=== PATIENT | female | born 1965 | race American Indian/Alaskan Native ===

== ENCOUNTER 2017-02-02 13:47 | Inpatient (IN) | payer OTHER ==
[2017-02-02 13:57] VITALS: BMI 25.9
[2017-02-02] MEDS ORDERED: Morphine 4 mg/ml ISec IVP STA (14:17)
[2017-02-02] MEDS ORDERED: Sodium Chloride 0.9% 1,000 ML IV STA (14:17)
--- NOTE | 2017-02-02 14:29 | ED PDOC ---
Arrival/HPI - General Historian: Patient <Darian Valencia A - Last Filed: 02/02/17 17:11> <Fernando Carson - Last Filed: 02/02/17 17:40> - General Chief Complaint: Weakness/Neurological Deficit Time Seen by Provider: 02/02/17 14:16 - History of Present Illness Narrative History of Present Illness (Text): 02/02/17 14:21 51yo female with PMHx of Multiple sclerosis present with complaint of extremities weakness and pain x 3weeks. States symptoms are typical of her symptoms with MS exacerbation. she notes she was getting IVIG every two weeks up until December. States her PMD stopped taking her insurance. She have had MS for 20years. Denies headache, abdominal pain, chest pain, visual change, aphasia , any other complaint. (Darian Valencia A) Past Medical History - Provider Review Nursing Documentation Reviewed: Yes - Infectious Disease Hx of Infectious Diseases: None - Tetanus Immunization Tetanus Immunization: Unknown - Cardiac Hx Hypertension: Yes - Pulmonary Hx Respiratory Disorders: No - Neurological Hx Neurological Disorder: Yes Other/Comment: MULTIPLE SCLEROSIS - HEENT Hx HEENT Disorder: No - Renal Hx Renal Disorder: No - Endocrine/Metabolic Hx Hypothyroidism: Yes - Hematological/Oncological Hx Blood Disorders: No - Integumentary Hx Dermatological Disorder: No - Musculoskeletal/Rheumatological Hx Falls: Yes Hx Unsteady Gait: Yes - Gastrointestinal Hx Gastrointestinal Disorders: No - Genitourinary/Gynecological Hx Genitourinary Disorders: No - Psychiatric Hx Psychophysiologic Disorder: No Hx Substance Use: No - Surgical History Hx Appendectomy: Yes Hx Tubal Ligation: Yes Other/Comment: Portacath to right chest wall. removal. Left portacath placed. x2 ovarian cyst <Darian Valencia A - Last Filed: 02/02/17 17:11> Family/Social History - Physician Review Nursing Documentation Reviewed: Yes Family/Social History: Unknown Family HX Smoking Status: Never Smoked Hx Alcohol Use: No Hx Substance Use: No <Darian Valencia A - Last Filed: 02/02/17 17:11> Allergies/Home Meds <Darian Valencia A - Last Filed: 02/02/17 17:11> <Fernando Carson - Last Filed: 02/02/17 17:40> Allergies/Adverse Reactions: Allergies Sulfa (Sulfonamide Antibiotics) Allergy (Intermediate, Verified 02/02/17 13:57) RASH Patient reported hives 5 years ago. Home Medications: Home Meds Medication Instructions Recorded Confirmed Losartan [Cozaar] 100 mg PO DAILY 11/12/15 02/02/17 Metoprolol Succinate [Toprol XL] 50 mg PO BID 11/12/15 02/02/17 Hydrochlorothiazide [HCTZ] 12.5 mg PO DAILY 05/18/16 02/02/17 Review of Systems - Physician Review All systems were reviewed & negative as marked: Yes - Review of Systems Constitutional: Normal Eyes: Normal ENT: Normal Respiratory: Normal Cardiovascular: Normal Gastrointestinal: Normal Genitourinary Female: Normal Musculoskeletal: Normal Skin: Normal Neurological: Focal Weakness Endocrine: Normal Hemo/Lymphatic: Normal Psychiatric: Normal <Diru,Happiness A - Last Filed: 02/02/17 17:11> Physical Exam Vital Signs Reviewed: Yes Temperature: Afebrile Blood Pressure: Normal Pulse: Regular Respiratory Rate: Normal Appearance: Positive for: Well-Appearing, Non-Toxic, Comfortable Pain Distress: None Mental Status: Positive for: Alert and Oriented X 3 - Systems Exam Head: Present: Atraumatic, Normocephalic Pupils: Present: PERRL Extroacular Muscles: Present: EOMI Conjunctiva: Present: Normal Mouth: Present: Moist Mucous Membranes Neck: Present: Normal Range of Motion Respiratory/Chest: Present: Clear to Auscultation, Good Air Exchange. No: Respiratory Distress, Accessory Muscle Use Cardiovascular: Present: Regular Rate and Rhythm, Normal S1, S2. No: Murmurs Abdomen: Present: Normal Bowel Sounds. No: Tenderness, Distention, Peritoneal Signs Back: Present: Normal Inspection Upper Extremity: Present: Normal Inspection. No: Cyanosis, Edema Lower Extremity: Present: Normal Inspection. No: Edema Neurological: Present: GCS=15, CN II-XII Intact, Speech Normal, Normal Sensory Function, Normal Cerebellar Funct, Memory Normal. No: Motor Func Grossly Intact (Upper extremity 3/5 and lower extremity 1/5), Norm Deep Tendon Reflexes Skin: Present: Warm, Dry, Normal Color. No: Rashes Psychiatric: Present: Alert, Oriented x 3, Normal Insight, Normal Concentration <Diru,Happiness A - Last Filed: 02/02/17 17:11> Vital Signs Temp Pulse Resp BP Pulse Ox 02/02/17 16:22 64 18 118/69 99 02/02/17 15:14 65 19 121/76 99 02/02/17 13:59 98.0 F 87 18 142/85 98 Medical Decision Making <Darian Valencia - Last Filed: 02/02/17 17:11> <Fernando Carson - Last Filed: 02/02/17 17:40> ED Course and Treatment: 02/02/17 16:03 Pt with history of MS in ED for MS exacerbation. Extremity weakness was noted in ED. Pt was hydrated, Solu medrol given and Morphine for pain. On re evaluation she states she feels mildly better, but still weak. Lab was unremarkable. ESR still pending. PT will be admitted for MS exacerbation. Result and plan was DW the pt and she agreed. EKG NSR with Nonspecific T wave abnormality @ 65bpm with no ST changes CXR NAD Case was DW Dr. Brito and she accepted pt into her service. She requested Dr. Sanford as consult. (Darian Valencia) - Lab Interpretations Lab Results: 02/02/17 14:26 02/02/17 14:26 Lab Results 02/02/17 14:37: Urine Color Yellow, Urine Appearance Sl cloudy, Urine pH 6.0, Ur Specific [place] 1.025, Urine Protein Trace H, Urine Glucose (UA) Negative, Urine Ketones 15 H, Urine Blood Negative, Urine Nitrate Negative, Urine Bilirubin Negative, Urine Urobilinogen 1.0 H, Ur Leukocyte Esterase Negative, Urine RBC Negative, Urine WBC 1 - 3, Ur Epithelial Cells 4 - 5, Urine Bacteria Few 02/02/17 14:26: WBC 6.4 D, RBC 4.08, Hgb 11.4 L, Hct 34.5 L, MCV 84.6, MCH 27.9 , MCHC 33.0, RDW 14.9 H, Plt Count 324, MPV 9.8, Gran % 65.2, Lymph % (Auto) 25.9, Dougherty % (Auto) 6.4 H, Eos % (Auto) 2.0, Baso % (Auto) 0.5, Gran # 4.15, Lymph # 1.7, Dougherty # 0.4, Eos # 0.1, Baso # 0.03, ESR 62 H, Sodium 140, Potassium 3.6, Chloride 105, Carbon Dioxide 27, Anion Gap 12, BUN 14, Creatinine 1.0, Est GFR ( Amer) > 60, Est GFR (Non-Af Amer) 59, Random Glucose 100, Calcium 8.9, Total Bilirubin 0.4, AST 21, ALT 30, Alkaline Phosphatase 86, Total Creatine Kinase 55, Total Protein 7.4, Albumin 3.5, Globulin 3.9, Albumin/Globulin Ratio 0.9 L - Medication Orders Current Medication Orders: Discontinued Medications Sodium Chloride (Sodium Chloride 0.9%) 1,000 mls @ 999 mls/hr IV .Q1H1M STA Stop: 02/02/17 15:17 Last Admin: 02/02/17 14:29 Dose: 999 MLS/HR eMAR Start Stop Document 02/02/17 14:29 SE (Rec: 02/02/17 14:29 [id number]) Intravenous Solution Start Date 02/02/17 Start Time 14:29 Methylprednisolone (Solu-Medrol) 125 mg IVP STAT STA Stop: 02/02/17 14:18 Last Admin: 02/02/17 14:46 Dose: 125 MG IVP Administration Document 02/02/17 14:46 SE (Rec: 02/02/17 14:46 [id number]) Charges for Administration # of IVP Administrations 1 Morphine Sulfate (Morphine) 4 mg IVP STAT STA Stop: 02/02/17 14:18 Last Admin: 02/02/17 14:46 Dose: 4 MG MAR Pain Assessment Document 02/02/17 14:46 SE (Rec: 02/02/17 14:46 [id number]) Pain Reassessment Is this a pain reassessment? No Sleep Is patient sleeping during reassessment? No Presence of Pain Presence of Pain Yes Pain Scale Used Pain Scale Used Numeric IVP Administration Document 02/02/17 14:46 SE (Rec: 02/02/17 14:[address] [id number][place] Charges for Administration # of IVP Administrations 1 - PA / FORGING OPERATOR / Resident Statement /DO has reviewed & agrees with the documentation as recorded. <Fernando Carson - Last Filed: 02/02/17 17:40> Disposition/Present on Arrival - Present on Arrival Any Indicators Present on Arrival: No History of DVT/PE: No History of Uncontrolled Diabetes: No Urinary Catheter: No History of Decub. Ulcer: No History Surgical Site Infection Following: None - Disposition Have Diagnosis and Disposition been Completed?: Yes Disposition Time: 16:00 <Darian Valencia - Last Filed: 02/02/17 17:11> <Fernando Carson - Last Filed: 02/02/17 17:40> - Disposition Diagnosis: Multiple sclerosis exacerbation Disposition: HOSPITALIZED Patient Problems: Current Active Problems Problem Status Diagnosed Multiple sclerosis exacerbation Acute Condition: FAIR
[2017-02-02 14:30] LABS: ADD MANUAL DIFF? NO
[2017-02-02 14:36] LABS: BASO # 0.03 K/mm3 (0.0-2.0); BASO % 0.5 % (0.0-3.0); EOS # 0.1 (0.0-0.7); GRAN # 4.15 (1.4-6.5); GRAN % 65.2 % (50.0-68.0); HEMATOCRIT 34.5 % (36.0-48.0); LYMPH # 1.7 (1.2-3.4); LYMPH % 25.9 % (22.0-35.0); MEAN CELL VOLUME 84.6 fL (80.0-105.0); MEAN CORPUSCULAR HEMOGLOBIN 27.9 pg (25.0-35.0); MEAN PLATELET VOLUME 9.8 fl (7.0-11.0); MONO # 0.4 (0.1-0.6); MONO % 6.4 % (1.0-6.0); PLATELET COUNT 324 10^3/uL (120.0-450.0); RED CELL DISTRIBUTION WIDTH 14.9 % (11.5-14.5); WHITE BLOOD COUNT 6.4 10^3/ul (4.5-11.0)
[2017-02-02 14:49] LABS: ALB/GLOB RATIO 0.9 (1.1-1.8); ALKALINE PHOSPHATASE 86 U/L (38-133); ALT/SGPT 30 U/L (7-56); AST/SGOT 21 U/L (15-39); BILIRUBIN,TOTAL 0.4 mg/dL (0.2-1.3); BLOOD UREA NITROGEN 14 mg/dL (7-21); CALCIUM 8.9 mg/dL (8.4-10.5); CARBON DIOXIDE 27 mmol/L (21-33); CHLORIDE 105 mmol/L (98-107); GFR AFRICAN-AMERICAN > 60; GLUCOSE,RANDOM 100 mg/dL (70-110); POTASSIUM 3.6 mmol/L (3.6-5.0); SODIUM 140 mmol/L (132-148); TOTAL PROTEIN 7.4 g/dL (5.8-8.3)
[2017-02-02 15:13] LABS: URINE BILIRUBIN NEGATIVE (NEGATIVE); URINE BLOOD NEGATIVE (NEGATIVE); URINE GLUCOSE (UA) NEGATIVE (NEGATIVE); URINE KETONE 15 mg/dL (NEGATIVE); URINE LEUKOCYTE ESTERASE NEGATIVE Leu/uL (NEGATIVE); URINE PROTEIN TRACE mg/dL (<30 mg/dL)
[2017-02-02 15:21] LABS: URINE APPEARANCE SL CLOUDY (CLEAR); URINE COLOR YELLOW (YELLOW)
[2017-02-02 15:32] LABS: URINE BACTERIA FEW (NEG); URINE RBC NEGATIVE /hpf (0-2)
[2017-02-02 16:30] LABS: ERYTHROCYTE SEDIMENTATION RATE 62 mm/hr (0.0-20.0)
[2017-02-02] MEDS ORDERED: Pneumococcal 23-Valent Vaccine IM ONE (19:54)
[2017-02-02] MEDS: HYDROmorphone 0.5 mg/0.5 ml ISec IVP PRN (22:00)
[2017-02-02] MEDS: MethylPREDNISolone 40 mg Vial IVP SCH (22:21)
[2017-02-03 05:58] LABS: HEMATOCRIT 33.4 % (36.0-48.0); MEAN CELL VOLUME 84.1 fL (80.0-105.0); MEAN CORPUSCULAR HEMOGLOBIN 27.7 pg (25.0-35.0); MEAN CORPUSCULAR HGB CONC 32.9 g/dl (31.0-37.0); MEAN PLATELET VOLUME 9.9 fl (7.0-11.0); RED CELL DISTRIBUTION WIDTH 15.1 % (11.5-14.5); WHITE BLOOD COUNT 12.8 10^3/ul (4.5-11.0)
[2017-02-03 06:06] LABS: BLOOD UREA NITROGEN 15 mg/dL (7-21); CALCIUM 8.6 mg/dL (8.4-10.5); CARBON DIOXIDE 26 mmol/L (21-33); CHLORIDE 106 mmol/L (98-107); CHOLESTEROL 180 mg/dL (130-200); GFR AFRICAN-AMERICAN > 60; GLUCOSE,RANDOM 133 mg/dL (70-110); POTASSIUM 3.6 mmol/L (3.6-5.0); SODIUM 138 mmol/L (132-148)
[2017-02-03 06:48] LABS: IRON 47 ug/dL (45-180)
--- NOTE | 2017-02-03 07:33 | HP ---
CHIEF COMPLAINT: Feeling fatigued and tired and neurological deficits. HISTORY OF PRESENT ILLNESS: The patient is a 51-year-old female with past medical history of multipl e sclerosis, came with complaining of extremity weakness and pain for 3 weeks. States that symptoms are typical of her MS exacerbation. She noted that she was getting IVIG every 2 weeks up to until ; states her PMD stopped taking her insurance. She has not now had IVIG. She has had MS for 20 years. Denies blurring of vision, headache, dizziness. No shortness of breath. PAST MEDICAL HISTORY: Hypothyroidism, unsteady gait, appendectomy, tubal ligation. FAMILY HISTORY: Father and mother noncontributory. HABITS: No smoking, no drugs, no ethanol. ALLERGIES: THE PATIENT IS ALLERGIC WITH SULFA. HOME MEDICATIONS: Cozaar, Toprol/HCTZ. REVIEW OF SYSTEMS: The patient is seen and examined on the bedside. Seen in the Emergency Room. No nausea, vomiting, or diarrhea. No fever, no chills. Does not look toxic. No headache, no dizzines s. Feeling very fatigued and tired. PHYSICAL EXAMINATION: VITAL SIGNS: Temperature 98.0, pulse 87, respiratory rate 18, blood pressure 142/85. HEENT: Head is normocephalic, atraumatic. Eyes: PERRLA. Extraocular muscles intact. Conjunctivae pink. Eyelids unremarkable. Nose patent. NECK: Supple. No carotid bruit, JVD or thyromegaly. CHEST: Bilaterally symmetrical. HEART: S1, S2 positive. LUNGS: Clear to auscultation. ABDOMEN: Soft. Bowel sounds present. No organomegaly. EXTREMITIES: No edema, no cyanosis. NEUROLOGIC: The patient is awake, alert, moving all 4 extremities. No focal deficits. LABORATORY DATA: White blood cells 6.4, hemoglobin 11.4, hematocrit 34.5, and platelets 324. Sodium 140, potassium 3.6, BUN 14, creatinine 1.0. AST 21, ALT 30. ASSESSMENT AND PLAN: The patient is a 51-year-old female with anemia, proteinuria, ketonuria, exacer bation of multiple sclerosis, who was admitted a couple of months ago, history of hypertension, hypot hyroidism, history of ataxia, appendectomy, tubal ligation. We admitted the patient. Neurology cons ult called with Dr. Sanford. Started on losartan, hydromorphone for pain, Pepcid for GI prophylaxis. Started on Solu-Medrol 40 mg IV q. 12 hours, metoprolol for hypertension. GI and DVT prophylaxis. Will follow up. Delicia Brito MD cc: [id number] TT: 02/03/2017 07:32:31 mn
--- NOTE | 2017-02-03 08:50 | CARD ---
APPROVED REPORT EKG Measurement Heart [id number] <Conclusion> Normal sinus rhythm Nonspecific T wave abnormality Prolonged QT Abnormal ECG
--- NOTE | 2017-02-03 09:03 | RAD ---
HISTORY: admission COMPARISON: 08/27/2014 FINDINGS: LUNGS: No active pulmonary disease. PLEURA: No significant pleural effusion identified, no pneumothorax apparent. CARDIOVASCULAR: Normal. OSSEOUS STRUCTURES: No significant abnormalities. VISUALIZED UPPER ABDOMEN: Normal. OTHER FINDINGS: Left-sided Port-A-Cath IMPRESSION: No active disease.
[2017-02-03] MEDS: MethylPREDNISolone 40 mg Vial IVP SCH ×2 (10:08→23:19)
[2017-02-03] MEDS: Metoprolol Succinate 50 mg XL Tab PO SCH ×2 (10:09→17:24)
--- NOTE | 2017-02-03 13:14 | CON ---
DATE: 02/03/2017 CHIEF COMPLAINT: Generalized weakness. HISTORY OF PRESENT ILLNESS: This is a 51-year-old woman with a presumptive diagnosis of multiple scl erosis which I had stated my last note on 05/20/2016 when she was here that she does not have multiple sclerosis. She was given IVIG, possibly for other demyelinating cause, but definitely is not multipl e sclerosis. She had an MRI last year of 05/2016 with the MRI spine showing disk herniation at C3-C4, C4-C5 and mild central canal stenosis, but no evidence of demyelinating plaque as well as she had an MRI of the thoracic spine which showed no evidence of demyelinating plaques either. I also reviewed her MRI brain even in 2013 which showed no evidence of demyelinating disease. She said when she got IVIG she felt better and less muscle weakness. So far even last time her animal aquaporin-4 was brock zofia antibody and was negative; therefore did not show any what we call Devic's disease or neuromyeli tis optica. She came to the hospital this time because she felt generalized weakness and inability t o get up from a sitting to a standing position at times and she has a left foot drop from a fall, inj uring her left superficial peroneal nerve which she has not listened to me from even 05/2016 to wear a n AFO. Physical therapy is at bedside. She is able to move her extremities, but just feels generall y weak overall. She is on steroids with Solu-Medrol of 40 mg IV q. 12. She mentions that, when she was diagnosed years ago with questionable multiple sclerosis, she had intractable hiccups and had nys tagmus and had poor balance and generalized weakness and said that she had a lesion in her cervical a nd thoracic cord which I do not see in her last MRIs. Possibly, that could be the reason that she wa s treated with IVIG which had helped her, but she was given MS drugs like Avonex in the past which ma de her symptoms worse, indicating this is not multiple sclerosis. Her workup will be worked up as an outpatient, possibly for autoimmune. PAST MEDICAL HISTORY: Presumptive multiple sclerosis which I disagree. Likely, just some underlying demyelinating disease. She was on IVIG which has stopped since 12/2016. REVIEW OF SYSTEMS: A 14-point review of systems is negative except for the HPI. SOCIAL HISTORY: No illicit drug use, smoking, or ETOH abuse. FAMILY HISTORY: Noncontributory. Past medical history also of hypothyroidism. ALLERGIES: ALLERGIC TO SULFA DRUGS. PHYSICAL EXAMINATION: VITAL SIGNS: Temperature 98.1, pulse rate of 74, blood pressure 107/60, respiratory rate of 20, oxyg en saturation 97% via room air. GENERAL: The patient is sitting up in the bed in no acute distress. HEENT: Atraumatic, normocephalic. PERRLA. Extraocular muscles intact. NECK: Supple, no JVD, no adenopathy noted. LUNGS: Clear to auscultation. No adventitious sounds. HEART: S1, S2, normal rate and rhythm. No murmurs, rubs, or gallops. ABDOMEN: Soft, nontender, nondistended. Bowel sounds are present. EXTREMITIES: No clubbing, no cyanosis. Peripheral pulses 2+ felt bilaterally. NEUROLOGIC: The patient is alert, oriented to person, place, month and year. Speech is fluent witho ut any errors. Cranial nerves II-XII intact. MOTOR: Moves all extremities equally. Has left anterior tibialis muscle weakness indicating left fo ot drop which is likely from a fall in the past. DTRs are 2+ throughout. COORDINATION: [id number] intact. SENSORY: Light touch, pinprick, proprioception, vibration is intact. Gait is deferred for now. LABORATORY DATA: Sodium is 138, potassium 3.6, chloride of 106, carbon dioxide 26, BUN of 15, creati nine 0.7, random glucose of 133. B12 is pending. TSH is 0.14 which is low. ASSESSMENT AND PLAN: This is a 51-year-old -[place] woman with past medical history of hyper tension, history of questionable multiple sclerosis in 1996 and was on IVIG until 12/2016 and had fall en down the stairs in 05/2016 which resulted in the left foot drop from injury from the left superfici al peroneal nerve, history of hypothyroidism, came in for generalized weakness. I feel like her gene ralized weakness is likely deconditioned state. I do not think she has multiple sclerosis since I person ve reviewed her MRIs of the cervical spine and thoracic spine from 05/2016 which showed no evidence of demyelinating plaques which I had ordered personally myself. I reviewed her MRI of the brain, image s from the past which do not show any demyelinating disease. It is possible that she has some autoim mune phenomena causing generalized weakness; therefore, she was given IVIG or some other form of demy elinating disease, but multiple sclerosis. She does not have multiple sclerosis I repeat. At this t cindy, recommend: 1. Acute rehab for physical and occupational therapy and needs an AFO to the left foot for left foot drop. 2. She can have baclofen 10 mg p.o. t.i.d. for muscle spasms. 3. We will send for Sjogren's panel, lupus panel as well as animal antibody and TPO antibodies and c an be followed as an outpatient and she will see me as an outpatient or her neurologist. At this time, continue with current present management. She needs acute rehab. Continue with physic al and occupational therapy and continue with her current dose of Solu-Medrol that she is receiving a t 40 mg IV q. 12. Thank you for this consult. Christopher Sanford MD cc: [id number] TT: 02/03/2017 13:13:13 Confirmation # [id number] Dictation # [id number] tn
[2017-02-03] MEDS: HYDROmorphone 0.5 mg/0.5 ml ISec IVP PRN ×2 (17:22→23:25)
--- NOTE | 2017-02-03 21:51 | PN ---
DATE: 02/03/2017 The patient was seen and examined on the bedside, looks comfortable. No nausea , vomiting, diarrhea. Still having body aches, especially hands and legs, but they got a little bit better. No hematuria or hematochezia. Feeling a headache. No fever, no chills. PHYSICAL EXAMINATION: VITAL SIGNS: Temperature is 97.6, pulse 65, blood pressure 120/90, respiratory rate 20. HEENT: Normocephalic, atraumatic. Eyes: PERRLA. Extraocular muscles intact. Conjunctivae are pink. Eyelids unremarkable. Nose patent. Mucous membranes moist. NECK: Supple. No carotid bruit, JVD or thyromegaly. CHEST: Bilaterally symmetrical. HEART: S1, S2 positive. LUNGS: Clear to auscultation. ABDOMEN: Soft, bowel sounds present. No organomegaly. EXTREMITIES: No edema, no cyanosis. NEUROLOGIC: The patient is awake, alert, moving all 4 extremities. No focal deficit. MEDICATIONS: Cozaar, Dilaudid, hydralazine, Pepcid, Solu-Medrol, Toprol, Tylenol, and Zofran. LABORATORY DATA: White blood cells 12.8, hemoglobin 11.0, hematocrit 33.4, platelets are 329. Sodium 138. potassium 3.6, BUN 15, creatinine 0.7, glucose 133. TIBC 14. TSH 0.14. ASSESSMENT AND PLAN: The patient is a 51-year-old female with hyperthyroidism, hyperglycemia, anemia, leukocytosis, proteinuria, ketonuria. Seen by Dr. Christopher Sanford, neurologist. History of multiple sclerosis. According to neurologist, it is a presumptive diagnosis. He likely just some underlying demyelinating disease. She was on IVIG which has stopped since 12/2016, came in [facility] with fatigue and tired and body aches. History of hypertension , history of fall, represents with a left foot drop from injury from the left superficial peroneal nerve. History of hypothyroidism, but now TSH is very low. Maybe we have to adjust her levothyroxine. Generalized weakness and deconditioning. According to the neurologist, he reviewed MRIs of brain and does not show any demyelinating disease. It is possible that she has some autoimmune phenomenon causing generalized weakness. Therefore, she was given some other forms of demyelinating disease, but multiple sclerosis questionable. Dr. Sanford recommended physical therapy, occupational therapy. Needs an AFO to the left foot for the left foot drop. She can have baclofen for muscle spasm. Dr. Sanford sent a ra panel, lupus panel, antibody panel, and TPO antibodies and can be followed up. Continue current management. She needs acute rehab. Continue physical therapy, occupational therapy, tapering dose of Solu-Medrol. Appreciated Dr. Sanford's input. Will followup. Delicia Brito MD cc: [id number] TT: 02/03/2017 21:51:04 Confirmation # [id number] Dictation # [id number] erik CHASE
[2017-02-04] MEDS: Metoprolol Succinate 50 mg XL Tab PO SCH ×2 (09:06→18:38)
[2017-02-04] MEDS: MethylPREDNISolone 40 mg Vial IVP SCH ×2 (09:08→22:58)
--- NOTE | 2017-02-04 09:39 | CON ---
DATE: 02/04/2017 HISTORY OF PRESENT ILLNESS: This is a 51-year-old patient with multiple sclerosis, seen for bilatera l foot pain. The patient is seen at bedside. She is alert and oriented. PAST MEDICAL HISTORY: As noted. Positive for multiple sclerosis. She also has a history of having hypothyroidism. MEDICATIONS: Noted on the DEC. ALLERGIES: SULFA. SOCIAL HISTORY: She does not smoke, use drugs or ethanol. FAMILY HISTORY: Noncontributory. REVIEW OF SYSTEMS: Reviewed and noted on the ER chart. The patient denies any fever or chills. She denies any nausea or vomiting. She denies any chest pain. She has no history of headache or dizzin ess. She does state that she is fatigued. She also states that she has an unsteady gait, she walks with a cane, and she is tripping when she does walk. She also states that she has had some type of b racing to the left lower extremity because the foot was turning over, and that was done several years ago at [facility]. The patient states that she does not wear that brace all the t cindy. Review of Dr. Sanford's notes shows that the patient has a damaged superficial peroneal nerve on the l eft side which caused drop foot deformity. VITAL SIGNS: Reviewed. Her temperature is 97.6, her pulse rate was 71, her blood pressure is 121/91 and respirations are 20 and the oxygen sat was 97. LABORATORY DATA: The patient's labs were reviewed. Her white blood cell count today is 12.8, the H and H are 11 and 33.4, and the platelets 329. Her ESR was 62. The patient's glucose was 133. The r est of the SMA was grossly within normal limits. The patient also had a chest x-ray while here at the hospital, and the chest x-ray shows that there w as no pleural effusion. PHYSICAL EXAMINATION: The patient's lower extremities were evaluated. She has good pedal pulses, kofi th dorsalis and posterior tibial bilateral. She does have a drop foot deformity on both feet. We ar e unable to bring the feet to 90. However, once we knock out the influence of the gastroc muscle in both lower extremities we can bring the foot to 90. It was better on the right than on the left. Ho elliott, I think she would be able to wear AFOs in order to walk. Her muscle power was weekend bilater al and she had a hard time moving any of her lower extremities against resistance. ASSESSMENT: Lower extremity weakness and drop foot deformity bilateral. PLAN OF TREATMENT: I did discuss with the patient that she needs to wear bilateral AFOs, that if she does not the drop foot deformity is going to continue and she is not going to be able to walk any lo nger because the feet will not be able to come flat to the ground. She stated that she agrees and is willing to have bracing done. She also states that she is going to an acute care rehab. I discusse d with her that while she is there they may have an radiation oncology nurse that can come in and do these braces fo r her; however, if not, I do know an radiation oncology nurse that can come to the acute care rehab and/or to her ho me that would do the bracing for her. She said that she would be amenable; so again, it depends upon her destination from the hospital where the bracing should be done; however, it is imperative that s he wear bilateral braces or she risks the fact of having rigid drop feet deformity and not be able to ambulate at all. Ruth Leavitt DPM cc: [id number] TT: 02/04/2017 09:38:50 Confirmation # [id number] Dictation # [id number] annia
[2017-02-04] MEDS: HYDROmorphone 0.5 mg/0.5 ml ISec IVP PRN ×2 (18:40→22:58)
--- NOTE | 2017-02-04 21:01 | CP.PCM.PN ---
Subjective - Date & Time of Evaluation Date of Evaluation: 02/04/17 Time of Evaluation: 20:59 - Subjective Subjective: Nurse calls and tells that patient had no BM since Wednesday. Abdomen is little bit distended. Patient is concerned about it. C/o migraines. Has Hx of migraine. Dilaudid helps which she is on. Pertinent medical record was reviewed. Patient was seen at bedside. States that she has not had any bowel movement since Wednesday and wants something to help her for BM. States that she has migraine head ache. No other complaints. This 51 year old woman is admitted with extremities weakness and pain of 3 weeks duration. Has PMH of multiple sclerosis, hypothyroidism, migraine, gait disturbance, appendectomy, tubal ligation. Objective - Vital Signs/Intake and Output Vital Signs (last 24 hours): Temp Pulse Resp BP Pulse Ox 98.2 F 62 16 146/89 96 02/04/17 06:00 02/04/17 18:38 02/04/17 06:00 02/04/17 18:38 02/04/17 06:00 - Medications Medications: Current Medications Acetaminophen (Tylenol 325mg Tab) 650 mg PO Q6H PRN PRN Reason: Headache Last Admin: 02/03/17 10:09 Dose: 650 mg Baclofen (Lioresal) 10 mg PO TID [facility] Last Admin: 02/04/17 18:38 Dose: 10 mg Famotidine (Pepcid) 40 mg PO HS [facility] Last Admin: 02/03/17 23:17 Dose: 40 mg Hydrochlorothiazide (Microzide) 12.5 mg PO DAILY [facility] Last Admin: 02/04/17 09:06 Dose: 12.5 mg Hydromorphone HCl (Dilaudid) 0.5 mg IVP Q4H PRN PRN Reason: Pain, Mild (1-3) Last Admin: 02/04/17 18:40 Dose: 0.5 mg Losartan Potassium (Cozaar) 100 mg PO DAILY [facility] Last Admin: 02/04/17 09:07 Dose: 100 mg Methylprednisolone (Solu-Medrol) 30 mg IVP Q12 [facility] Last Admin: 02/04/17 09:08 Dose: 30 mg Metoprolol Succinate (Toprol Xl) 50 mg PO BID [facility] Last Admin: 02/04/17 18:38 Dose: 50 mg Ondansetron HCl (Zofran Inj) 4 mg IVP Q6H PRN PRN Reason: Nausea/Vomiting Last Admin: 02/04/17 09:12 Dose: 4 mg - Labs Labs: 02/03/17 05:30 02/03/17 05:30 - Constitutional Appears: Well, No Acute Distress - Head Exam Head Exam: ATRAUMATIC, NORMAL INSPECTION, NORMOCEPHALIC - Eye Exam Eye Exam: Normal appearance - ENT Exam ENT Exam: Normal External Ear Exam - Neck Exam Neck Exam: Normal Inspection - Respiratory Exam Respiratory Exam: NORMAL BREATHING PATTERN - Cardiovascular Exam Cardiovascular Exam: absent: JVD - GI/Abdominal Exam GI & Abdominal Exam: absent: Distended - Rectal Exam Rectal Exam: Deferred - Extremities Exam Extremities Exam: Normal Inspection - Back Exam Back Exam: NORMAL INSPECTION - Neurological Exam Neurological Exam: Alert, Oriented x3 - Psychiatric Exam Psychiatric exam: Normal Affect, Normal Mood - Skin Skin Exam: Normal Color Assessment and Plan - Assessment and Plan (Free Text) Assessment: A/P:Constipation. Migraine headache. Multiple sclerosis exacerbation. Hypothyroidism. MOM 30 CC PO now. Dilaudid as per order. Continue present management.
[2017-02-04 21:58] VITALS: O2SAT 97
[2017-02-04] MEDS ORDERED: Magnesium Hydroxide Susp 30 ml UD PO STA (22:40)
--- NOTE | 2017-02-05 07:59 | PN ---
DATE: 02/04/2017 SUBJECTIVE: The patient was seen and examined on the bedside. She was seen early by brent Arevalo physician, for migraine and not having bowel movement , but later on the patient had a bowel movement. Hands and feet pains are getting better. Still having body aches. No fever, no chills. No hematuria or hematochezia. Seen and examined on her bed in her room. PHYSICAL EXAMINATION: VITAL SIGNS: Temperature 98.5, pulse 62, blood pressure 120/89, respiratory rate 20. HEENT: Head normocephalic, atraumatic. Eyes: PERRLA. Extraocular muscles intact. Conjunctivae pink. Eyelids unremarkable. Nose patent. NECK: Supple. No carotid bruit, JVD or thyromegaly. CHEST: Bilaterally symmetrical. HEART: S1, S2 positive. LUNGS: Clear to auscultation. ABDOMEN: Soft. Bowel sounds positive. No organomegaly. EXTREMITIES: No edema, no cyanosis. NEUROLOGIC: The patient is awake, alert, moving all 4 extremities. No focal deficits. MEDICATIONS: Cozaar, Dilaudid, baclofen, Microzide, Pepcid, Solu-Medrol, Toprol , Tylenol and Zofran. LABORATORY DATA: White blood cells 12.5, hemoglobin 11.0, hematocrit 33.4, platelets 329. Sodium 138, potassium 3.6, BUN 15, creatinine 0.7, glucose 133. TSH 0.14. ASSESSMENT AND PLAN: The patient is a 51-year-old lady with hyperglycemia, hyperthyroidism, leukocytosis, anemia, proteinuria, ketonuria. Seen by Dr. Freda aceves, brent physician, for constipation and migraine. Seen by Dr. Ruth Leavitt for footdrop, multiple sclerosis, lower extremity weakness and drop foot deformity bilaterally. According to Dr. Leavitt, the patient needs to wear bilateral ankle foot orthoses; that if she does not, drop foot deformity is going to continue and she is not going to be able to walk any longer because the feet will not be able to come flat to the ground. The patient agrees and is willing to have bracing done. Waiting for rehab for the patient. Seen by the neurologist, Dr. Christopher Sanford. History of hypertension. I reviewed Dr. Christopher Sanford's notes with detail appreciated. Discussion done with the social workers also. According to Christopher Sanford, the patient has some type of demyelinating disease but not multiple sclerosis. Needs rehabilitation, baclofen. Still working on the patient's physical therapy. Repeat labs. Will follow up. Delicia Brito MD cc: [id number] TT: 02/05/2017 07:58:45 Confirmation # [id number] Dictation # [id number] annia CHASE
[2017-02-05 09:24] VITALS: TEMP 98.6
[2017-02-05] MEDS: MethylPREDNISolone 40 mg Vial IVP SCH (10:02)
[2017-02-05] MEDS: Metoprolol Succinate 50 mg XL Tab PO SCH ×2 (10:03→17:13)
[2017-02-05] MEDS: HYDROmorphone 0.5 mg/0.5 ml ISec IVP PRN (10:13)
[2017-02-05] MEDS ORDERED: HYDROmorphone 0.5 mg/0.5 ml ISec IVP PRN (10:58)
[2017-02-05] MEDS ORDERED: MethylPREDNISolone 40 mg Vial IVP SCH (10:59)
--- NOTE | 2017-02-05 11:25 | PN ---
DATE: 02/05/2017 The patient is a 51-year-old female. The patient was seen and examined on the bedside, feels a little bit better. Still having body aches, still does not have bowel movement. Headache is a little bit better. No nausea, vomiting. No fever, no chills. PHYSICAL EXAMINATION: VITAL SIGNS: Temperature 98.6, pulse 58, blood pressure 163/93, respiratory rate 19. HEENT: Head normocephalic, atraumatic. Eyes: PERRLA. Extraocular muscles intact. Conjunctivae pink. Eyelids unremarkable. Nose patent. NECK: Supple. No carotid bruit, no JVD, no thyromegaly. CHEST: Bilaterally symmetrical. HEART: S1, S2 positive. LUNGS: Clear to auscultation. ABDOMEN: Soft. Bowel sounds positive. No organomegaly. EXTREMITIES: No edema, no cyanosis. NEUROLOGIC: The patient is awake, alert, moving all 4 extremities. No focal deficits. MEDICATIONS: Cozaar, Dilaudid, baclofen, hydrochlorothiazide, Pepcid, Solu- Medrol, Toprol, Tylenol, Zofran. LABORATORIES: We do not have recent labs today, but I reviewed old labs. ASSESSMENT AND PLAN: The patient is a 51-year-old female with leukocytosis, anemia, proteinuria, ketonuria, history of migraine, constipation. laxative not working today. Gave a dose of lactulose. Will decrease Solu-Medrol. Bilateral foot drop. Dr. Leavitt ordered foot orthosis. History of multiple sclerosis. Per Dr. Christopher Sanford, some type of autoimmune process, working on that. The patient needs rehab, physical therapy. Trying to get that. Gastrointestinal and deep venous thrombosis prophylaxis. Repeat labs. Will follow up. Delicia Brito MD cc: [id number] TT: 02/05/2017 11:25:18 Confirmation # [id number] Dictation # [id number] en MTDD
[2017-02-05 15:17] LABS: PARIETAL CELL AB SCREEN Negative (Negative)
[2017-02-05 18:17] LABS: Interpretation Negative (Negative)
[2017-02-05 18:37] VITALS: BP 172/106; PULSE 57; RESP 20
--- NOTE | 2017-02-05 19:17 | CON ---
DATE: 02/05/2017 REFERRING PHYSICIAN: Dr. Brito. REASON FOR CONSULT: Generalized aches and pains, daytime sleepy and tired, does not know if she snor es, rule out sleep apnea. HISTORY OF PRESENT ILLNESS: This is a 51-year-old female who carries the diagnosis of multiple scler osis? In the past, she was treated with IV IGG and felt better. Seen by Dr. Sanford this admission. Does not know if she snores, but daytime she is sleepy and tired. Before my examination, she had an episode of vomiting with some abdominal discomfort, also constipated. No dysuria. No leg pain or l eg swelling. PAST MEDICAL HISTORY: Hypothyroid, questionable multiple sclerosis, hypertension. FAMILY HISTORY: No significant cardiopulmonary disease reported. SOCIAL HISTORY: Denies smoking or alcohol use. ALLERGIES: SULFA. MEDICATIONS: Presently, she is on Cozaar 100 mg daily, Dilaudid 0.25 mg q. 4 hours p.r.n., baclofen 10 mg 3 times a day, hydrochlorothiazide 12.5 mg daily, Pepcid 40 mg daily, Solu-Medrol 20 mg IV q. 1 2 hours, Toprol-XL 50 mg twice a day, Tylenol p.r.n., Zofran p.r.n. REVIEW OF SYSTEMS: No headache, no rhinitis, no cough, no sputum production. Feels weak and lethargi c, lower extremity weakness, status post vomiting. No chest pain, no significant abdominal pain. Vasquez d constipation. No dysuria. PHYSICAL EXAMINATION: GENERAL: Lying in the bed, no acute distress. VITAL SIGNS: Temp is 98, heart rate 58, respiratory rate 20, blood pressure 146/89, pulse ox 97% on room air. HEENT: Moist mucous membranes. Crowded airway. Mallampati score is 4. NECK: Supple. No JVD. LUNGS: Has a fair airflow with few rhonchi. HEART: S1 and S2. ABDOMEN: Soft, nontender. No organomegaly. EXTREMITIES: There is no edema. NEUROLOGIC: Awake, alert, follows simple commands. LABORATORY DATA: Shows hemoglobin 11.0, hematocrit 33.4, WBC 12.8, platelet is 329. Sodium 138, pot assium 3.6, chloride 106, bicarbonate 26, BUN 15, creatinine 0.7. Glucose 133, calcium 8.6. Iron 47 . AST 21, ALT 30, alkaline phosphatase is 86. Cholesterol is 180. Thyroglobulin quantitative is 63 . TSH is 0.14. Urinalysis shows trace protein, has ketones and urobilinogen, WBCs 1-3. Rheumatoid factor is 8. screen is negative. Antismooth muscle antibody is negative. Thyroperoxidase anti body negative. Thyroglobulin antibody negative. Antiparietal cell antibody negative. Compliment C3 is 121, compliment 4 is 1 24. Urine culture, there is no growth. Had EKG done, shows normal sinus rhythm, prolonged QT. Chest x-ray was done in ER, which shows no active pulmonary disease. IMPRESSION AND PLAN: Carries diagnosis of multiple sclerosis. Workup is in progress. Constipation, status post vomiting. Rule out sleep apnea syndrome. Dr. Sanford's note is reviewed, appreciated he lp. Most of the results are still pending. We will give her Dulcolax suppository for constipation. May add Reglan for a day or so. Keep head elevated at 45 degrees. May have a component of sleep bike mechanic ea syndrome giving her daytime tiredness and sleepiness. We will send sed rate and C-reactive protei n. Neurological testing is unremarkable. May need to get infectious diseases consult to rule out an y chronic parasitic and viral infection. Will follow with you. Jeffery Stewart MD cc: [facility] TT: 02/05/2017 19:16:44 Confirmation # [id number] Dictation # [id number] erik
--- NOTE | 2017-02-21 21:33 | DS ---
CHIEF COMPLAINT: Feeling fatigued, tired and has neurological deficit, HISTORY OF PRESENT ILLNESS: The patient is a 51-year-old female with past medical history of multipl e sclerosis, came with complaining of lower extremity weakness and pain for 3 weeks. States that sym ptoms are typically of her MS exacerbation. She noticed that she was getting IVIG every 2 weeks up u ntil 12/2016 and states that her PMD stopped taking her insurance. She has not now had IVIG. She person s had MS for 20 years. Denies blurring of vision, headache, dizziness. No shortness of breath. We admitted the patient. Called neurology consult with Dr. Sanford. Was seen by Dr. Christopher Sanford and w as seen by Dr. Ruth Leavitt also for feet problem. Got better. Discharged home. Follow up with my office and neurologist. REVIEW OF SYSTEMS: The patient was seen and examined on 02/05/2017 on the bedside. Looks comfortabl e, still having body aches but is better. Headache is a little bit better. No nausea, vomiting, no fever. The patient was cleared by the neurologist. Discharged home. Will follow up with primary care physi morris, neurologist. Prescription of the medications given. For detail, see my progress notes of 01/17. Delicia Brito MD cc: [id number] TT: 02/21/2017 21:32:25
== END 2017-02-05 18:45 | DRG 566 ==
LOC: ED 13:47 → ERH 16:02 → 3RSO 19:23
PROVIDERS: ADMIT Internal Medicine; ATTEND Internal Medicine
DX: M21.372 Foot drop, left foot (principal); M21.371 Foot drop, right foot; R26.0 Ataxic gait; I10 Essential (primary) hypertension; R27.0 Ataxia, unspecified; E03.9 Hypothyroidism, unspecified; K59.00 Constipation, unspecified; D64.9 Anemia, unspecified; Z88.2 Allergy status to sulfonamides